=== PATIENT | male | born 1955 | race Caucasian/White ===

== ENCOUNTER 2016-12-06 09:01 | Emergency (ER) | payer MEDICAID ==
[~2016-12-06] VITALS: Wt 74.0 kg
[~2016-12-06 09:01] MED LIST: LOSA25TA47 PO; PANT40TA3 PO
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
[2016-12-06] MEDS ORDERED: ESOM40CA PO (09:33)
[2016-12-06] MEDS ORDERED: LOSA25TA5 PO (09:33)
== END 2016-12-06 09:50 | disposition home or self-care (01) ==
LOC: FTE 09:01
DX: M54.9 Dorsalgia, unspecified (principal); I10 Essential (primary) hypertension
CPT/HCPCS: 93005; Z7502

== ENCOUNTER 2016-12-16 10:25 | Emergency (ER) | payer MEDICAID ==
[~2016-12-16] VITALS: Ht 162.6 cm; Wt 73.5 kg
[~2016-12-16 10:25] MED LIST changes: +ESOM40CA PO; +LOSA25TA2 PO; -LOSA25TA47 PO; +LOSA25TA5 PO
[2016-12-16 10:30] VITALS: Ht 162.6 cm; Wt 73.5 kg
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
[2016-12-16 14:34] LABS: URINE BLOOD (Dip) POC Trace-lysed (NEGATIVE)
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
[2016-12-16 14:41] LABS: BASOPHILS % 0.3 % (0.0-2.0); CONDITION 1; EOSINOPHILS # 0.6 10^3/ul (0.0-0.5); EOSINOPHILS % 6.1 % (0.0-7.0); HEMATOCRIT 43.8 % (42.0-52.0); HEMOGLOBIN 14.7 g/dl (14.0-18.0); LYMPHOCYTES # 2.7 10^3/ul (0.8-2.9); MEAN CORPUSCULAR HEMOGLOBIN 30.4 pg (29.0-33.0); MEAN CORPUSCULAR HGB CONC 33.5 g/dl (32.0-37.0); MEAN CORPUSCULAR VOLUME 90.8 fl (82.0-101.0); MEAN PLATELET VOLUME 8.7 fl (7.4-10.4); MONOCYTE # 0.8 10^3/ul (0.3-0.9); MONOCYTES % 7.5 % (0.0-11.0); NEUTROPHIL # 6.2 10^3/ul (1.6-7.5); NEUTROPHILS % 60.1 % (39.0-77.0); PLATELET COUNT 358 10^3/UL (140-440); RED BLOOD COUNT 4.83 10^6/ul (4.70-6.10); RED CELL DISTRIBUTION WIDTH 12.4 % (11.5-14.5); UNCORRECTED WBC 10.3 10^3/ul (4.8-10.8); WHITE BLOOD COUNT 10.3 10^3/ul (4.8-10.8)
[2016-12-16 14:56] LABS: ALBUMIN 4.4 g/dl (3.3-4.9)
[2016-12-16 14:57] LABS: POTASSIUM 4.5 mmol/L (3.5-5.1)
[2016-12-16 14:59] LABS: ALBUMIN/GLOBULIN RATIO 1.46; BILIRUBIN,INDIRECT 0.6 mg/dl (0-1.1); BILIRUBIN,TOTAL 0.6 mg/dl (0.2-1.3); CREATININE 0.83 mg/dl (0.61-1.24); TOTAL PROTEIN 7.4 g/dl (6.1-8.1)
[2016-12-16] MEDS ORDERED: TAMS0.4C2 PO (15:24)
[2016-12-16] MEDS ORDERED: ASPI-664 PO (15:25)
[2016-12-16] MEDS ORDERED: RANI150T5 PO (15:25)
[2016-12-16] MEDS ORDERED: IBUP-1542 PO (15:32)
== END 2016-12-16 16:02 | disposition home or self-care (01) ==
LOC: E/R 10:25
DX: R10.84 Generalized abdominal pain (principal); R40.2142 Coma scale, eyes open, spontaneous, at arrival to emergency department; I10 Essential (primary) hypertension; R40.2252 Coma scale, best verbal response, oriented, at arrival to emergency department; R40.2362 Coma scale, best motor response, obeys commands, at arrival to emergency department; Z79.82 Long term (current) use of aspirin; Z87.891 Personal history of nicotine dependence
CPT/HCPCS: 36415; 74176; 80053; 81003; 83690; 85025

== ENCOUNTER 2017-10-21 08:50 | Emergency (ER) | payer MEDICAID ==
[~2017-10-21] VITALS: Wt 82.9 kg
[~2017-10-21 08:50] MED LIST changes: +ASPI-664 PO; -ESOM40CA PO; +IBUP-1542 PO; -LOSA25TA5 PO; -PANT40TA3 PO; +RANI150T5 PO; +TAMS0.4C2 PO
[2017-10-21] MEDS ORDERED: KETOROLAC 30 MG INJ IM STA (09:27)
[2017-10-21] MEDS ORDERED: predniSONE 20 MG TAB PO ONE (09:30)
--- NOTE | 2017-10-21 10:16 | RADRPT ---
PROCEDURE: CT lumbar spine without contrast CLINICAL INDICATION: Back pain with radicular symptoms. TECHNIQUE: CT scan of the lumbar spine was performed on a high-resolution multi-detector CT scanne r. No IV contrast was administered. Coronal and sagittal reformatted images were obtained from the axial source images. Images were reviewed on a high-resolution PACS workstation. Exam CTDI = 19.21 mGy and the DLP = 532.17 mGy-cm. DICOM images are available. One or more of the following dose reduction techniques were used: Automated exposure control. Adjustment of the mA and/or kV according to patient size. Use of iterative reconstruction technique. COMPARISON: CT abdomen and pelvis 12/16/2016. FINDINGS: There is normal lumbar lordosis. Alignment remains intact. No acute fracture or dislocation is see n. The vertebral body heights are maintained. Posterior elements structures are intact. The parasp inous soft tissues are unremarkable. No mass, hematoma, or other soft tissue abnormality is seen. T12-L1, and L1-L2: The disc heights are maintained. The central canal and bilateral neural foramina are adequately patent. L2-L3: The disc height is maintained. There is 3 mm circumferential disc bulge. The central canal a nd bilateral neural foramina are adequately patent. L3-L4: There is trace retrolisthesis. The disc height is maintained. There is 2 mm circumferential disc bulge. Central canal and bilateral neural foramina are adequately patent. L4-L5: There is mild right lateral disc height loss. Diffuse disc bulge with superimposed right for aminal disc osteophytic protrusion, and mild facet arthropathy with ligamentum flavum thickening are seen at this level. There is moderate to severe right and moderate left neural foraminal stenosis. There is effacement of the right lateral recess. There is mild to moderate central canal stenosis. L5-S1: There is moderate left lateral disc height loss with discogenic endplate changes and disc va cuum phenomena. Disc osteophyte complex with foraminal components and mild facet arthropathy are see n at this level. There is severe bilateral neural foraminal stenosis. The central canal remains adeq uately patent. IMPRESSION: 1. No acute fracture or traumatic malalignment. 2. Lumbar spondylosis/degenerative enthesopathy more evident at L4-L5 and L5-S1. At L5-S1: Severe bilateral neural foraminal stenosis. The central canal remains adequately patent. At L4-L5: Mild to moderate central canal stenosis. Moderately severe right and moderate left neural foraminal stenosis. Effacement of the right lateral recess. RPTAT: BB .Karen Lin MD, Date Time Electronically viewed and signed by .Karen Lin MD, on 10/21/2017 10:16 .O/
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
[2017-10-21] MEDS ORDERED: NAPR-260 PO (10:48)
[2017-10-21] MEDS ORDERED: TRAM50TA2 PO (10:48)
[2017-10-21] MEDS ORDERED: PRED20TA PO (10:50)
== END 2017-10-21 11:41 | disposition home or self-care (01) ==
LOC: FTE 08:50
DX: M54.42 Lumbago with sciatica, left side (principal); M79.605 Pain in left leg; I10 Essential (primary) hypertension; Z79.82 Long term (current) use of aspirin
CPT/HCPCS: 72131; 96372; J1885; J7512; Z7502